=== PATIENT | male | born 1930 | race Caucasian/White ===

== ENCOUNTER 2016-08-30 19:28 | Inpatient (IN) | payer MEDICARE, MEDICAID ==
[~2016-08-30] VITALS: Ht 167.6 cm; Wt 76.7 kg
[~2016-08-30 19:28] MED LIST: Acetaminophen PO; IBRU140C PO; LEVO500T15 PO; PRED20TA PO; [UNRECOGNIZED DRUG - OTHER]
--- NOTE | 2016-08-30 19:42 | NUR ---
PT BIB FAMILY WITH C/O NUMBNESS IN RT FACE ALONG WITH DROOLING WHEN TAKING LIQUIDS.PT STATES STARTED ABOUT 1P.PT AWAKE AND ALERT.DENIES PAIN. HAND GRASPS EQUAL NO WEAKNESS NOTED IN UPPER OR LOWER EXTREMITIES.ERMD AT BEDSIDE... PT IS ALERT, ORIENTED X 4, NO RESP DISTRESS NOTED OR REPORTED UPON ASSESSMENT... PT IS AMBULATORY WITH ASSISTANCE OF [facility], PT CONTINENT OF BLADDER AND BOWEL, AT BEDSIDE...
--- NOTE | 2016-08-30 19:45 | NUR ---
FAMILY MEMBER AT BEDSIDE...
[2016-08-30 20:06] LABS: BASOPHILS % (AUTO) 0.2 % (0.0-2.0); EOSINOPHILS # (AUTO) 0.1 K/uL (0.0-0.7); EOSINOPHILS % (AUTO) 0.8 % (0.0-7.0); HEMATOCRIT 36.4 % (36.7-47.1); HEMOGLOBIN 12.5 g/dL (12.5-16.3); LYMPHOCYTES # (AUTO) 10.2 K/uL (20.0-40.0); LYMPHOCYTES % (AUTO) 63.8 % (20.5-51.5); MEAN CORPUSCULAR HEMOGLOBIN 28.8 uug (23.8-33.4); MEAN CORPUSCULAR HGB CONC 34 g/dL (32.5-36.3); MEAN CORPUSCULAR VOLUME 84.1 fL (73.0-96.2); MONOCYTES # (AUTO) 1.9 K/uL (2.0-10.0); MONOCYTES % (AUTO) 12.1 % (0.0-11.0); NEUTROPHILS # (AUTO) 3.7 K/uL (1.8-8.9); NEUTROPHILS % (AUTO) 23.1 % (38.5-71.5); PLATELET COUNT (AUTO) 137 K/uL (152-348); RED BLOOD CELL COUNT(AUTO) 4.33 MIL/uL (4.06-5.63); RED CELL DISTRIBUTION WIDTH 15.6 % (12.1-16.2); WHITE BLOOD COUNT (AUTO) 15.9 K/uL (3.6-10.2)
[2016-08-30 20:11] LABS: CALCIUM 9.2 mg/dL (8.5-10.1); CARBON DIOXIDE 28 mmol/L (21-32); CHLORIDE 108 mmol/L (98-107); CREATININE 0.9 mg/dL (0.6-1.3); GLUCOSE 111 mg/dL (74-106); SODIUM SERUM 141 mmol/L (136-145); UREA NITROGEN, BLOOD 19 mg/dL (7-18)
[2016-08-30 20:19] LABS: TROPONIN I 0.223 ng/mL (0.00-0.056)
[2016-08-30] MEDS ORDERED: AMLO5TAB4 PO (20:22)
[2016-08-30 20:25] LABS: ALANINE AMINOTRANSFERASE 39 U/L (16-63); ALBUMIN 3.9 g/dL (3.4-5.0); ALKALINE PHOSPHATASE 58 U/L (50-136); BILIRUBIN,TOTAL 0.3 mg/dL (0.2-1.0); TOTAL PROTEIN, SERUM 7.2 g/dL (6.4-8.2)
[2016-08-30 20:30] LABS: BAND % (MANUAL) 3 % (0-10); EOSINOPHILS % (MANUAL) 1 % (0-8); MONOCYTES % (MANUAL) 7 % (2-10); NEUTROPHILS % (MANUAL) 26 % (42-75)
[2016-08-30 20:31] LABS: LYMPHOCYTES % (MANUAL) 63 % (20-40)
[2016-08-30 20:32] LABS: ANISOCYTOSIS 1+; PLATELET ESTIMATE SLIGHT DECREASED
[2016-08-30 20:35] LABS: ASPARTATE AMINOTRANSFERASE 32 U/L (15-37); BILIRUBIN,DIRECT < 0.1 mg/dL (0.0-0.2)
[2016-08-30 20:54] LABS: LACTIC ACID 0.8 mmol/L (0.4-2.0)
--- NOTE | 2016-08-30 21:57 | NUR ---
epic paged, advised by rug underlay machine operator that Dr. Pablito jones would be paged to call ER....
[2016-08-30] MEDS ORDERED: IV NS 1000 ML 1,000 ML IV PRN (22:18)
[2016-08-30] MEDS ORDERED: ASPIRIN 325 MG TABLET PO ONE (22:30)
[2016-08-30] MEDS ORDERED: MAGNESIUM HYDROXIDE 30 ML LIQUID UDC PO PRN (22:30)
[2016-08-30] MEDS ORDERED: Z GUARD REMEDY PASTE 57 GM TUBE TOP PRN (22:30)
[2016-08-30] MEDS ORDERED: TEMAZEPAM 7.5 MG CAPSULE PO PRN (22:30)
[2016-08-30] MEDS ORDERED: HYDROCODONE/APAP 5-325MG TABLET PO PRN (22:30)
[2016-08-30] MEDS ORDERED: ACETAMINOPHEN 325 MG TABLET PO PRN (22:30)
[2016-08-30] MEDS ORDERED: ONDANSETRON 4 MG/2 ML VIAL IV PRN (22:30)
[2016-08-30] MEDS ORDERED: ENOXAPARIN SODIUM 40 MG/0.4 ML DISP.SYRIN SQ SCH (22:30)
--- NOTE | 2016-08-30 22:45 | NUR ---
PATIENT BROUGHT IN VIA STRETCHER , ADMITTED TO TELE WITH DX NSEMI. PATEINT A O X 4. NO C/O OF CHEST PAIN . B/P WNL.NO WEAKNESS ON THE EXTREMITIES NOTED. BILATERAL EYES VIKRAM.SPEECH CLEAR.MILD ASYMMETRY ON RIGHTSIDE OF THE LIP NOTED. WILL CONTINUE TO [id number].
[2016-08-30 23:00] VITALS: BP 142/72
--- NOTE | 2016-08-30 23:08 | NUR ---
Pt. admitted to Tele , under care of Dr. Pablito Rodriguez, [place] List completed, pt alert, oriented x 4, no resp distress noted or reported upon transfer assessment... pt transferred via gurney...
[2016-08-30] MEDS ORDERED: ENOXAPARIN SODIUM 40 MG/0.4 ML DISP.SYRIN SQ ONE (23:17)
[2016-08-30] MEDS ORDERED: ASPIRIN 325 MG TABLET ONE (23:19)
--- NOTE | 2016-08-31 | NUR ---
RECEIVED ABNORMAL LAB VALUE OF 0.231 TROPONIN VALUE. IT WAS 0.223. MD NOTIFIED WITH STAT EKG
[2016-08-31 04:00] VITALS: BP 138/68
[2016-08-31 04:42] LABS: BASOPHILS % (AUTO) 0.3 % (0.0-2.0); EOSINOPHILS # (AUTO) 0.1 K/uL (0.0-0.7); HEMATOCRIT 34.4 % (36.7-47.1); HEMOGLOBIN 11.5 g/dL (12.5-16.3); LYMPHOCYTES # (AUTO) 9.7 K/uL (20.0-40.0); LYMPHOCYTES % (AUTO) 69.2 % (20.5-51.5); MEAN CORPUSCULAR HEMOGLOBIN 28.3 uug (23.8-33.4); MEAN CORPUSCULAR HGB CONC 34 g/dL (32.5-36.3); MEAN CORPUSCULAR VOLUME 84.5 fL (73.0-96.2); NEUTROPHILS # (AUTO) 3.1 K/uL (1.8-8.9); NEUTROPHILS % (AUTO) 22.5 % (38.5-71.5); PLATELET COUNT (AUTO) 125 K/uL (152-348); RED BLOOD CELL COUNT(AUTO) 4.07 MIL/uL (4.06-5.63); RED CELL DISTRIBUTION WIDTH 15.9 % (12.1-16.2); WHITE BLOOD COUNT (AUTO) 13.9 K/uL (3.6-10.2)
--- NOTE | 2016-08-31 05:00 | NUR ---
TROPONIN 0.233. MD NOTIFIED WITH NO NEW ORDERS. NO C/O OF CHEST PAIN . IV FLU9ID INFUSING ORDERED.
[2016-08-31 05:01] LABS: ALBUMIN 3.3 g/dL (3.4-5.0); BILIRUBIN,TOTAL 0.2 mg/dL (0.2-1.0); CALCIUM 8.8 mg/dL (8.5-10.1); MAGNESIUM 2.2 mg/dL (1.8-2.4); PHOSPHOROUS 3.8 mg/dL (2.5-4.9); POTASSIUM 4.1 mmol/L (3.5-5.1); TOTAL PROTEIN, SERUM 6.3 g/dL (6.4-8.2)
--- NOTE | 2016-08-31 07:30 | NUR ---
Pt received awake,alert,oriented.Denies pain,discomfort.Noted with mild facial droop on right side.Moves all extremities.Ambulated outside in hallway with stable gate.Speech is clear.Pt remains NPO.Will continue to monitor.
[2016-08-31] MEDS: PANTOPRAZOLE SODIUM 40 MG VIAL IV SCH (11:31)
[2016-08-31] MEDS: AMLODIPINE 5 MG TABLET PO SCH (11:32)
[2016-08-31] MEDS: ASPIRIN 81 MG TAB.CHEW PO SCH (11:32)
[2016-08-31 12:20] VITALS: BP 134/73
[2016-08-31] MEDS ORDERED: IV D5 1/2 NS 1000 ML 1,000 ML IV PRN (13:45)
[2016-08-31 16:15] VITALS: BP 115/61
--- NOTE | 2016-08-31 18:17 | NUR ---
PT REMAINS AWAKE,ALERT.DENIES PAIN,DISCOMFORT.MOVES ALL EXTREMITIES.SPEECH IS CLEAR.NO NEW NEURO DEFICIT NOTED.AWAITING FOR MRI.PT FAMILY AT BEDSIDE,UPDATED.
--- NOTE | 2016-08-31 19:21 | NUR ---
Pt transfered to mri via ambulance.Report given to ambulance.
[2016-08-31] MEDS ORDERED: ATORVASTATIN 40 MG TABLET PO SCH (21:00)
--- NOTE | 2016-08-31 21:05 | NUR ---
Patient arrived from MRI diagnostic test via gurney, alert, responsive, in no acute distress. Call light within reach. Will continue to monitor.
[2016-08-31 23:50] VITALS: BP 105/60
[2016-09-01 04:00] VITALS: BP 111/60
--- NOTE | 2016-09-01 06:05 | NUR ---
Patient slept well, in no acute distress, no c/o of chest pain or sob. Pt on tele SR w/PACs. Meds due given as ordered. Will continue to monitor.
[2016-09-01] MEDS: PANTOPRAZOLE SODIUM 40 MG VIAL IV SCH (06:16)
[2016-09-01 06:18] LABS: CALCIUM 9.5 mg/dL (8.5-10.1); CREATININE 0.9 mg/dL (0.6-1.3); POTASSIUM 4.4 mmol/L (3.5-5.1)
[2016-09-01 06:34] LABS: BASOPHILS % (AUTO) 0.3 % (0.0-2.0); EOSINOPHILS # (AUTO) 0.1 K/uL (0.0-0.7); HEMATOCRIT 36.9 % (36.7-47.1); HEMOGLOBIN 12.3 g/dL (12.5-16.3); LYMPHOCYTES # (AUTO) 8.7 K/uL (20.0-40.0); LYMPHOCYTES % (AUTO) 65.9 % (20.5-51.5); MEAN CORPUSCULAR HEMOGLOBIN 28.3 uug (23.8-33.4); MEAN CORPUSCULAR HGB CONC 33 g/dL (32.5-36.3); MEAN CORPUSCULAR VOLUME 84.7 fL (73.0-96.2); MONOCYTES # (AUTO) 0.8 K/uL (2.0-10.0); MONOCYTES % (AUTO) 6.5 % (0.0-11.0); NEUTROPHILS # (AUTO) 3.4 K/uL (1.8-8.9); NEUTROPHILS % (AUTO) 26.3 % (38.5-71.5); PLATELET COUNT (AUTO) 131 K/uL (152-348); RED BLOOD CELL COUNT(AUTO) 4.35 MIL/uL (4.06-5.63); RED CELL DISTRIBUTION WIDTH 15.9 % (12.1-16.2)
--- NOTE | 2016-09-01 07:24 | NUR ---
CARDIAC DIET BY DR. CM
--- NOTE | 2016-09-01 07:27 | NUR ---
PER DR. CM DC IV D5 1/2 NS FLUIDS
[2016-09-01 09:56] VITALS: BP 136/70
[2016-09-01] MEDS: ASPIRIN 81 MG TAB.CHEW PO SCH (09:56)
[2016-09-01] MEDS: AMLODIPINE 5 MG TABLET PO SCH (09:56)
--- NOTE | 2016-09-01 11:00 | NUR ---
DISCHARGE NOTE: NO S/S OF RESPIRATORY DISTRESS NOTED. GAIT IS STEADY. NO PAIN REPORTED. NO WEAKNESS IS NOTED. IV IS REMOVED. NO S/S OF STROKE IS NOTED. PT LEFT HIS SON. PT INSISTED NOT TO USE WHEELCHAIR. D/C EDUCATION MATERIAL IS PROVIDED.
[2016-09-02] MEDS ORDERED: PANTOPRAZOLE SODIUM 40 MG TABLET.DR PO SCH (07:00)
== END 2016-09-01 12:05 | disposition home or self-care (01) | DRG 73 ==
LOC: ER 19:28 → TELE 22:35
PROVIDERS: ADMIT Family Medicine; ATTEND Family Medicine
DX: G51.0 Bell's palsy (principal); I21.4 Non-ST elevation (NSTEMI) myocardial infarction; G45.9 Transient cerebral ischemic attack, unspecified; C91.10 Chronic lymphocytic leukemia of B-cell type not having achieved remission; D68.59 Other primary thrombophilia; E87.0 Hyperosmolality and hypernatremia; J44.9 Chronic obstructive pulmonary disease, unspecified; K27.9 Peptic ulcer, site unspecified, unspecified as acute or chronic, without hemorrhage or perforation; K21.9 Gastro-esophageal reflux disease without esophagitis; I10 Essential (primary) hypertension; I48.91 Unspecified atrial fibrillation; R78.9 Finding of unspecified substance, not normally found in blood
CPT/HCPCS: 36415; 70030-TC; 70450; 70551; 71010; 71250; 83605; 83735; 84100; 85025; 85730; 87040; 93005; 93307; 93880; A4663; C9113; J1650; J3490; J7030